=== PATIENT | male | born 1965 | race Caucasian/White ===

== ENCOUNTER 2019-09-09 12:59 | Emergency (ER) | payer OTHER ==
[~2019-09-09] VITALS: Ht 180.3 cm; Wt 88.0 kg
[2019-09-09] MEDS ORDERED: METHOCARBAMOL (500MG) 500 MG TABLET PO ONE (13:30)
[2019-09-09] MEDS ORDERED: KETOROLAC TROMETHAMINE INJ 60 MG/2 ML VIAL IM ONE ×2 (13:30→13:36)
[2019-09-09] MEDS ORDERED: METHOCARBAMOL (500MG) 500 MG TABLET ONE (13:36)
--- NOTE | 2019-09-09 13:38 | NUR ---
patient arrived at unit. awake, a/o x 4. with c/o lower back pain for few days, worse pain today, denies injury/trauma. will continue to monitor accordingly
[2019-09-09 16:52] VITALS: BP 137/80
--- NOTE | 2019-09-09 16:52 | NUR ---
Patient discharged to home in stable condition. Written and verbal after care instructions given. Written prescription provided to patient. Information regarding Dr. Angulo provided. Patient verbalizes understanding of instruction.
== END 2019-09-09 16:53 | disposition home or self-care (01) ==
LOC: ER 13:00
DX: M54.42 Lumbago with sciatica, left side (principal); I10 Essential (primary) hypertension; E11.9 Type 2 diabetes mellitus without complications
CPT/HCPCS: 72131; 96372; 99284; J1885

== ENCOUNTER 2019-09-09 18:33 | Emergency (ER) | payer OTHER ==
[~2019-09-09] VITALS: Ht 177.8 cm; Wt 74.8 kg
[2019-09-09 18:56] VITALS: BP 134/78
[2019-09-09] MEDS ORDERED: KETOROLAC TROMETHAMINE INJ 60 MG/2 ML VIAL IM ONE (19:00)
[2019-09-09] MEDS ORDERED: KETOROLAC TROMETHAMINE INJ 30 MG/ML VIAL ONE (19:07)
== END 2019-09-09 19:11 | disposition home or self-care (01) ==
LOC: ER 18:38
DX: M54.16 Radiculopathy, lumbar region (principal); G89.29 Other chronic pain; I10 Essential (primary) hypertension; E11.9 Type 2 diabetes mellitus without complications
CPT/HCPCS: 96372; 99283; J1885